=== PATIENT | female | born 1985 | race Caucasian/White ===

== ENCOUNTER 2016-12-07 16:17 | Emergency (ER) | payer OTHER ==
[~2016-12-07] VITALS: Ht 152.4 cm; Wt 86.2 kg
[~2016-12-07 16:17] MED LIST: NORCO 325 MG-51 TAB PO
[2016-12-07 16:21] VITALS: BP 119/54
--- NOTE | 2016-12-07 16:36 | ED EAR COMPLAINT ---
History of Present Illness General Chief Complaint: General Adult Stated Complaint: PER PT "LEFT EAR IS CLOGGED AND CAN'T HEAR" Source: patient Exam Limitations: no limitations Vital Signs & Intake/Output Vital Signs & Intake/Output Vital Signs Date Time Temp Pulse Resp B/P Pulse O2 O2 Flow FiO2 Ox Delivery Rate 12/07 1621 97.1 74 18 119/54 98 Room Air Allergies Coded Allergies: MDX - Amoxicillin (AMOXICILLIN) (Severe, HIVES 11/24/12) MDX - Penicillin (PENICILLIN) (Severe, HIVES 11/24/12) Reconcile Medications Acetaminophen/Hydrocodone Bi ([place]borne 325 MG-5 MG) 1 TAB TAB 1-2 TAB PO Q6P PRN PAIN Augmentin (Augmentin 500-125 Tablet) 500 MG-125 MG TABLET 1 TAB PO BID OTITIS MEDIA Triage Note: COMPLAINS OF L EAR PAIN THAT STARTED WEDNESDAY Triage Nurses Notes Reviewed? yes Onset: Gradual Duration: constant Timing: recent history Severity: moderate Severity Numbers: 5 : No Patient currently breastfeeds: No HPI: Patient is a 31-year-old female who presents to emergency room with a 2 day history of left-sided ear discomfort and pain. Patient denies any mechanism of injury. Denies any ear discharge. Denies any fever, chills, sore throat or pain with jaw movement. No medications for symptoms. Patient states that symptoms feel very similar to previous ear infections Past History Travel History Traveled to [place] past 21 day No Medical History Any Pertinent Medical History? see below for history Neurological: seizure EENT: NONE Cardiovascular: NONE Respiratory: NONE Gastrointestinal: NONE Hepatic: NONE Renal: NONE Musculoskeletal: NONE Psychiatric: NONE Endocrine: NONE Blood Disorders: NONE Cancer(s): NONE FACILITY MAINTENANCE MANAGER/Reproductive: NONE Surgical History Surgical History: Psychosocial History What is your primary language Italian Tobacco Use: Current Daily Use Daily Tobacco Use Amount/Type: => 5 Cigarettes daily ETOH Use: denies use Illicit Drug Use: denies illicit drug use Family History Hx Contributory? No Review of Systems Review of Systems Constitutional: Reports: no symptoms. EENTM: Reports: see HPI, ear pain. Denies: ear discharge, ear redness. Respiratory: Reports: no symptoms. Cardiovascular: Reports: no symptoms. GI: Reports: no symptoms. Genitourinary: Reports: no symptoms. Musculoskeletal: Reports: no symptoms. Skin: Reports: no symptoms. Neurological/Psychological: Reports: no symptoms. Hematologic/Endocrine: Reports: no symptoms. Immunologic/Allergic: Reports: no symptoms. All Other Systems: Reviewed and Negative Physical Exam Physical Exam General Appearance: well developed/nourished, no apparent distress, alert, awake Ears: Left: erythema, Tympanic red. Bilateral: canal normal. Comments: Well-developed well-nourished person in no acute distress HEENT: extraocular motion intact, no nystagmus. Pupils equally round and reactive to light and accommodation. Nose is atraumatic. . Pharynx normal. No swelling or edema. Neck: Supple, no lymphadenopathy, normal range of motion without pain or tenderness Back: Nontender, no CVA tenderness. Cardiovascular: Regular rate and rhythms no murmurs rubs or gallops, normal JVP Respiratory: Chest nontender. No respiratory distress.breath sounds clear to auscultation bilaterally Extremity: No edema, no calf tenderness to palpation, normal and equal pulses. Neuro: Alert oriented x3, motor sensory normal, Skin: No appreciable rash on exposed skin, skin is warm and dry. Psych: Mood and affect is normal, memory and judgment is normal. Progress Differential Diagnoses I considered the following diagnoses in my evaluation of the patient: [Otitis media, otitis externa, sinusitis, tympanic membrane rupture, mastoiditis, pharyngitis, meningitis] Plan of Care: Due to history of present illness and exam findings patient has assessment of left otitis media. Tympanic membrane was intact no concerns of tympanic membrane rupture Initial ED EKG: none Departure Departure Disposition: HOME OR SELF CARE Condition: Stable Clinical Impression Primary Impression: Left otitis media Referrals: PATIENT HAS NO PRIMARY CARE DR (PCP/Family) Additional Instructions: As discussed begin the prescription of Augmentin as directed for the full course. Begin [id number] ibuprofen for pain and inflammation. You have been given a list of primary care doctors from [facility] practice, please call tomorrow to establish a doctor for further evaluation treatment. Perceptions are waiting at [facility] pharmacy. If symptoms worsen or you develop a new CONCERNING symptom return to emergency room. Departure Forms: Customer Survey General Discharge Information Prescriptions: Current Visit Scripts Augmentin (Augmentin 500-125 Tablet) 1 TAB PO BID #20 TAB
[2016-12-07] MEDS ORDERED: AUGMENTIN 500-1 EACH PO (16:47)
== END 2016-12-07 16:56 ==
LOC: ERH 16:17
DX: H66.92 Otitis media, unspecified, left ear (principal)